=== PATIENT | male | born 2000 | race Two or more races ===

== ENCOUNTER 2023-12-20 17:23 | Emergency (ER) | payer OTHER ==
[~2023-12-20] VITALS: Ht 172.7 cm; Wt 65.8 kg
[2023-12-20] MEDS ORDERED: ONDANSETRON 4 MG/2 ML VIAL ONE (18:50)
[2023-12-20] MEDS ORDERED: HYDROMORPHONE 2 MG/1 ML DISP.SYRIN ONE (18:51)
[2023-12-20] MEDS ORDERED: CYCLOBENZAPRINE HCL 10 MG TABLET ONE (18:51)
[2023-12-20] MEDS: HYDROMORPHONE 1 MG/1 ML DISP.SYRIN IM ONE (18:55)
[2023-12-20] MEDS: CYCLOBENZAPRINE HCL 10 MG TABLET PO ONE (18:56)
[2023-12-20] MEDS: ONDANSETRON ODT 4 MG TAB.RAPDIS SL ONE (18:56)
[2023-12-20] MEDS: ONDANSETRON 4 MG/2 ML VIAL IM ONE (18:58)
[2023-12-20] MEDS ORDERED: ONDA4TAB11 PO (19:01)
[2023-12-20] MEDS ORDERED: HYDR-3980 PO (19:01)
[2023-12-20 19:09] VITALS: BP 121/77; O2SAT 99
== END 2023-12-20 19:10 | disposition home or self-care (01) ==
LOC: ER 17:25
DX: M54.41 Lumbago with sciatica, right side (principal); Z79.891 Long term (current) use of opiate analgesic
CPT/HCPCS: 99284; 96372 ×2; J2405; J1170; A4606; A4663